=== PATIENT | male | born 2000 | race Caucasian/White ===

== ENCOUNTER 2023-08-10 00:35 | Emergency (ER) | payer OTHER, SELFPAY ==
[2023-08-10 00:40] VITALS: BP 145/78; PULSE 65; RESP 20; TEMP 36.6; O2SAT 99; BMI 25.7
[2023-08-10 01:10] VITALS: O2SAT 99
[2023-08-10] MEDS: ONDANSETRON 2 MG/ML inj 4 MG IVP (01:15)
[2023-08-10] MEDS: 0.9 % SODIUM CHLORIDE 1000 ml 1,000 ML IV (01:15)
[2023-08-10 01:16] LABS: Lactate* 0.6 mmol/L (0.5-1.9)
[2023-08-10 01:19] LABS: Basophils Absolute Auto 0.03 K/uL (0.00-0.30); Basophils Percent Auto 0.3 % (0.0-3.0); Eosinophils Absolute Auto 0.21 K/uL (0.00-0.50); Eosinophils Percent Auto 1.9 % (0.0-7.0); Hemoglobin* 15.5 gm/dL (13.5-17.5); Immature Granulocytes Abs Auto 0.01 K/uL (0.00-0.30); Immature Granulocytes Pct Auto 0.1 %; Lymphocytes Percent Auto 11.3 % (20-44); Mean Corpuscular HGB Conc 34 gm/dL (32-36); Mean Corpuscular Hemoglobin 30 pg (26-34); Mean Corpuscular Volume 89 fL (80-100); Monocytes Percent Auto 4.8 % (0.0-11.0); Neutrophils Percent Auto 81.6 % (42.0-72.0); Platelet Count* 249 K/uL (140-440); RDW Coefficient of Variation % 11.5 % (11.5-15.5); Red Blood Count 5.17 m/uL (4.30-5.90); White Blood Count* 10.87 K/uL (4.50-11.00)
[2023-08-10 01:22] LABS: Slide Review Reflex No
[2023-08-10 01:30] LABS: Chloride* 101 mmol/L (96-114); Potassium* 3.9 mmol/L (3.6-5.1); Sodium* 138 mmol/L (135-149)
--- NOTE | 2023-08-10 01:32 | ED.ABDPAIN ---
HPI - Abdominal Pain General Date Seen: 08/10/23 Chief Complaint: Abdominal Pain Stated Complaint: abdominal pain Time Seen by Provider: 08/10/23 00:37 Source: patient Mode of arrival: ambulatory Limitations: no limitations History of Present Illness HPI narrative: Patient is a 23-year-old male presenting to emergency department for left lower quadrant abdominal pain. He has no other medical problems. Says the pain started around 17:00 and have continued. He has eaten since this. Did have 1 episode of emesis when the pain started but since then has not had any further emesis. Does feel slightly nauseated. Says he has been constipated but denies diarrhea. Has not had any fevers, chills, chest pain, shortness of breath, lightheadedness, dizziness, weakness, numbness. Was able to walk in without issue. States his girlfriend has similar symptoms a week and a half ago but she was asymptomatic by the time he saw her. She had a negative COVID test. Pain does not radiate anywhere and is relatively mild at this time he states. Related Data Home Medications Medication Instructions Recorded Confirmed albuterol 90 mcg/actuation aerosol 90 mcg inhalation Q4H PRN 08/10/23 08/10/23 inhaler Allergies Allergy/AdvReac Type Severity Reaction Status Date / Time No Known Drug Allergies Allergy Verified 08/10/23 00:41 Review of Systems Status of ROS Reports: 10 or more systems reviewed and unremarkable except as noted in History and below [facility] Medical History Asthma ?J45.909 - Unspecified asthma, uncomplicated (ICD-10) Surgical History No significant past surgical history Social History Smoking Status: Never smoker Second hand tobacco smoke exposure: No How often do you have a drink containing alcohol: never AUDIT-C Alcohol total score: 0 Non-prescribed substance use: denies use Exam Narrative: Exam Narrative: Const: Well-nourished, Well-developed, in mild distress Eyes: PERRL, no conjunctival injection, and symmetrical lids HENT: Atraumatic external nose and ears. Moist mucous membranes. Neck: Symmetric, trachea midline, No thyromegaly. CVS: RRR, No murmurs or gallops. Peripheral pulses 2+ and equal in all extremities RESP: Unlabored respiratory effort. Clear to auscultation bilaterally. GI: Left lower quadrant tenderness, Nondistended, No rebound or guarding. MSK:Extremities w/o deformity, Normal Active ROM Skin: Warm, Dry. No rashes or lesions. Neuro: Normal Muscle tone, No focal neurological deficits. Psych: Awake, Alert, & Oriented x3. Appropriate mood and affect. Const: Vital Signs, click to edit/add: Vital Signs - 24 hr 08/10/23 00:40 08/10/23 01:10 Temperature 97.9 F Pulse Rate [Right Pulse Oximeter] 65 Respiratory Rate 20 Blood Pressure [Ri ght Upper Arm] 145/78 H Pulse Oximetry 99 99 Oxygen Delivery Me thod Room Air Course Vital Signs Vital signs: Initial Vital Signs Temperature 97.9 F 08/10/23 00:40 Temperature Source Temporal Artery Scan 08/10/23 00:40 Pulse Rate 65 08/10/23 00:40 Respiratory Rate 20 08/10/23 00:40 Blood Pressure 145/78 H 08/10/23 00:40 Blood Pressure Mean 100 08/10/23 00:40 Blood Pressure Position Sitting 08/10/23 00:40 Pulse Oximetry 99 08/10/23 00:40 Oxygen Delivery Method Room Air 08/10/23 00:40 Vital Signs Temperature 97.9 F 08/10/23 00:40 Pulse Rate 65 08/10/23 00:40 Respiratory Rate 20 08/10/23 00:40 Blood Pressure 145/78 H 08/10/23 00:40 Pulse Oximetry 99 08/10/23 00:40 Oxygen Delivery Method Room Air 08/10/23 00:40 Temperature 97.9 F 08/10/23 00:40 Pulse Rate 65 08/10/23 00:40 Respiratory Rate 20 08/10/23 00:40 Blood Pressure 145/78 H 08/10/23 00:40 Pulse Oximetry 99 08/10/23 01:10 Oxygen Delivery Method Room Air 08/10/23 00:40 Medications Administered Medications: Generic Name Dose Route Start Last Admin Trade Name Freq PRN Reason Stop Dose Admin Sodium Chloride 1,000 mls @ 1,000 mls/hr 08/10/23 01:45 08/10/23 01:49 0.9 % Sodium Chloride 1000 Ml IV 08/10/23 02:44 Infused .Q1H RAMESH Infusion Ondansetron HCl 4 mg 08/10/23 01:32 08/10/23 01:15 Ondansetron 2 Mg/Ml Inj IVP 08/10/23 01:33 4 mg ONCE ONE Administration MDM - Abdominal Pain MDM Narrative Medical decision making narrative: Patient is a 23-year-old male presenting to emergency department for left lower quadrant pain. No pain in the right lower quadrant. Appendicitis seems unlikely. Considering his symptoms seems most likely is a viral at the [place] [facility] but we will order a CBC, BMP, lipase, COVID/flu/RSV. Seven no right upper quadrant pain in the seems unlikely to be liver or gallbladder related. No previous abdominal surgeries unlikely to be SBO. Lab work returned showing no concerning findings. Co social assess RSV is normal. He is feeling better with his medication. At this time is most likely a viral gastroenteritis and he can be discharged home. I do not believe imaging is necessary at this time it would be unnecessary radiation for patient of his age. He is agreeable to this plan. Will be discharged with Zofran through [facility]. Lab Data Labs: Lab Results 08/10/23 08/10/23 Range/Units 01:10 01:20 WBC 10.87 (4.50-11.00) K/uL RBC 5.17 (4.30-5.90) m/uL Hgb 15.5 (13.5-17.5) gm/dL Hct 46.0 (37.0-53.0) % MCV 89 (80-100) fL MCH 30 (26-34) pg MCHC 34 (32-36) gm/dL RDW Coeff of Wolfgang 11.5 (11.5-15.5) % Plt Count 249 (140-440) K/uL Neut % (Auto) 81.6 H (42.0-72.0) % Lymph % (Auto) 11.3 L (20-44) % [place] % (Auto) 4.8 (0.0-11.0) % Eos % (Auto) 1.9 (0.0-7.0) % Baso % (Auto) 0.3 (0.0-3.0) % Neut # (Auto) 8.90 H (1.7-7.0) K/uL Lymph # (Auto) 1.20 (0.90-2.90) K/uL [place] # (Auto) 0.50 (0.00-0.90) K/UL Eos # (Auto) 0.21 (0.00-0.50) K/uL Baso # (Auto) 0.03 (0.00-0.30) K/uL Abs Immat Gran (auto) 0.01 (0.00-0.30) K/uL Imm/Tot Granulo (auto) 0.1 % Sodium 138 (135-149) mmol/L Potassium 3.9 (3.6-5.1) mmol/L Chloride 101 (96-114) mmol/L Carbon Dioxide 24 (20-32) mmol/L Anion Gap 13 (7-15) mEq/L BUN 12 (5-24) mg/dL Creatinine 0.6 (0.5-1.5) mg/dL Estimated Creat Clear 161.70 Estimated GFR 140 ml/min Glucose 93 (60-115) mg/dL Lactate 0.6 (0.5-1.9) mmol/L Calcium 9.4 (8.4-10.6) mg/dL Lipase 72 (23-300) U/L SARS-CoV-2 (PCR) Negative SARS-CoV-2 (Negative) Influenza Type A (PCR) Negative PCR FLU A (Negative) Influenza Type B (PCR) Negative PCR FLU B (Negative) RSV (PCR) Negative PCR RSV (Negative) Discharge Plan Discharge Clinical Impression: Abdominal pain Qualifiers: Abdominal location: left lower quadrant Qualified Code(s): R10.32 - Left lower quadrant pain Patient Disposition: Home, Self-Care Condition: Improved Instructions: Gastroenteritis (DC) Additional Instructions: Take Tylenol and ibuprofen for pain. Use the Zofran as needed for nausea. Follow-up with primary care provider symptoms persist into next week. Return to emergency department for new or worsening symptoms Prescriptions: No Action albuterol 90 mcg/actuation aerosol 90 mcg inhalation Q4H PRN Rx Instructions: TAKE 2 PUFFS NEEDED FOR SHORTNESS OF BREATH Follow Up/Referrals: Provider,Not a Local [Primary Care Provider] - Stand Alone Forms: [employer] Info Instructions
[2023-08-10 01:33] LABS: Anion Gap 13 mEq/L (7-15); Blood Urea Nitrogen* 12 mg/dL (5-24); Carbon Dioxide* 24 mmol/L (20-32); Creatinine* 0.6 mg/dL (0.5-1.5); Estimated Glomerular Filt Rate 140 ml/min; Glucose* 93 mg/dL (60-115); Lipase* 72 U/L (23-300)
[2023-08-10 01:34] LABS: Calcium* 9.4 mg/dL (8.4-10.6)
[2023-08-10 02:05] LABS: PCR FLU A Negative PCR FLU A (Negative); PCR FLU B Negative PCR FLU B (Negative); PCR RSV Negative PCR RSV (Negative); SARS PCR* Negative SARS-CoV-2 (Negative)
[2023-08-10 02:29] VITALS: BP 125/74; PULSE 69; RESP 20; TEMP 36.8; O2SAT 99
[2023-08-10 02:31] VITALS: BP 125/74; PULSE 69; RESP 20; TEMP 36.8
== END 2023-08-10 02:31 | disposition home or self-care (01) ==
PROVIDERS: Emergency Provider Student in an Organized Health Care Education/Training Program
DX: R10.32 Left lower quadrant pain (principal)
CPT/HCPCS: 36415; 80048; 83605; 83690; 85025; 87631; 94761; 96374; 99283; J2405; J7030